=== PATIENT | female | born 1930 | race Caucasian/White ===

== ENCOUNTER 2016-08-07 17:56 | Observation (INO) | payer MEDICARE, OTHER ==
--- NOTE | ~2016-08-07 | HP ---
History And Physical [place] [id number] [facility] [place] [address] NAME: ZACHARIAH LLAMAS : [birth year] STATUS : ADM Go PAT#: [id number] AGE: 86 ADM/REG DATE : 08/07/16 MR#: [id number] REPORT SERV DATE: 08/08/16 DICTATED BY: JESSICA CURIEL DATE: 08/08/16 REPORT STATUS : Draft TRANSCRIBED BY: QUINTON DATE: 08/08/16 DATE OF ADMISSION: 08/07/2016 CHIEF COMPLAINT: Chest pain. HISTORY OF PRESENT ILLNESS: This is a very pleasant 86-year-old female with no prior history of coronary artery disease, who states onset of "deep pressure" to her mid sternum yesterday on the way home from [place] while she was driving herself home at 1230 hours. She describes it as 8/10 in severity with no specific radiation but associated with nausea. She called her family members when she got home and had tried antacids with little relief. It was associated with some burping as well, which did not specifically relieve the pain. She was brought to our emergency department with family members around 1 o'clock in the afternoon and waited in the waiting room for some time and the pain gradually eased. She did receive some nitroglycerin paste around 6:30 in the evening. Her blood pressure on admission was 219/85, but has been controlled through the night. She still complains of approximately 1/10 chest pain currently, but states no other increased episodes through the night. She denies any recent fever, cough, or chills. She does have a history reportedly of some COPD, but no smoking history, and was seen by wool puller in the past with home O2 use. She currently does get some dyspnea on exertion, but she manages without any oxygen. Denies any PND, orthopnea, or increased lower extremity edema. She does have some chronic left lower extremity edema since a total knee replacement in 2013. Denies any recent palpitations or presyncope. She leads a fairly active lifestyle, still lives independently and drives. PAST MEDICAL HISTORY: 1. Hypertension. 2. Hyperlipidemia. 3. Depression. 4. GERD. 5. Macular degeneration to the left, requiring injections. 6. Migraine headache. 7. COPD. PAST SURGICAL HISTORY: 1. Left total knee replacement in 2013. 2. Right wrist surgery. 3. Hysterectomy. 4. Hemorrhoid surgery. 5. Vein stripping. HOME MEDICATIONS: Artificial Tears t.i.d. p.r.n., aspirin 81 daily, Tenormin 25 at bedtime, hydrochlorothiazide 12.5 every morning, naproxen 440 mg daily p.r.n. pain, Prilosec 20 mg every morning, MiraLAX 17 g packet daily p.r.n. constipation, Zoloft 50 at bedtime, Restoril 15 mg p.r.n. insomnia, Zanaflex 4 mg daily p.r.n. muscle spasms, ophthalmic injection q.10 weeks to the left eye, and Icaps twice a day. ALLERGIES: STATINS CAUSE MUSCLE WEAKNESS. History And Physical [address] [address] NAME: ZACHARIAH LLAMAS : [birth year] STATUS : ADM Go PAT#: [id number] AGE: 86 ADM/REG DATE : 08/07/16 MR#: [id number] REPORT SERV DATE: 08/08/16 DICTATED BY: JESSICA CURIEL DATE: 08/08/16 REPORT STATUS : Draft TRANSCRIBED BY: QUINTON DATE: 08/08/16 SOCIAL HISTORY: The patient is a and lives by herself in [place], [place]. Her son is at bedside. She also has a daughter. She has never smoked. Denies alcohol use. FAMILY HISTORY: Father of an NH at age 67. Mother of complications from CHF at age 83. She has a daughter who had an NH at age 69. REVIEW OF SYSTEMS: Negative except as indicated above. PHYSICAL EXAMINATION: VITAL SIGNS: Blood pressure 126/68, heart rate 70, temperature 98.5, pulse oximetry 96% on room air. BMI 33.4. GENERAL: Well developed, well nourished, in no acute distress HEENT: Anicteric. Normal EOM. Head normocephalic. PERRLA, no xanthelasma. NECK: Supple. No JVD. Carotids normal without bruits. LUNGS: Coarse to the bilateral lower lobes. Normal respiratory effort. No wheezing. CARDIAC: S1, S2 regular rate and rhythm. No murmurs, rubs, or gallops. No chest wall tenderness. ABDOMEN: Normal bowel sounds. Soft and nontender to palpation. No masses or organomegaly. EXTREMITIES: 1+ edema to the left lower extremity. Normal distal pulses. No calf tenderness. SKIN: Warm and dry. Normal turgor. No pallor or cyanosis. MUSCULOSKELETAL: Moving all extremities x4. Normal muscle strength. NEURO/PSYCH: Alert and oriented with appropriate affect. LABORATORY DATA: White blood cell count 7.5, hemoglobin 12.0, hematocrit 36.0. D-dimer 1.69. Sodium 137, potassium 4.1, BUN 16, and creatinine 0.9. Troponin less than 0.02 x2. IMAGING: Chest x-ray shows small amount of bibasilar atelectasis and CTA of the chest with no evidence of pulmonary emboli. There are chronic ground-glass opacities in the lung post. This is consistent with underlying chronic interstitial lung disease/pulmonary fibrosis. Cardiomegaly with no acute CHF pattern. Mildly distended gallbladder without any evidence of gallstones or inflammatory changes. EKG interpreted by myself indicates sinus rhythm with LVH. ASSESSMENT AND PLAN: 1. Midsternal chest pain in this 86-year-old female with cardiovascular risk factors of hypertension, hyperlipidemia, and family history. She has been observed overnight in the chest Pain observation Unit and is negative for acute coronary syndrome. I have discussed with the patient given her age if she wants to proceed with further cardiac testing. Given her high functional status, we will proceed with a nuclear stress test today and discharge her home if it is low risk with no indication of ischemia. If any indication of ischemia, we will plan to discuss with her cardiac catheterization if warranted. The patient agrees to this plan. We will also arrange followup with her primary care physician upon discharge. 2. Hypertension, initially elevated, but has been controlled while she has been admitted. History And Physical [address] [place]. [address] NAME: ZACHARIAH LLAMAS BRIONES : [birth year] STATUS : ADM Go PAT#: [id number] AGE: 86 ADM/REG DATE : 08/07/16 MR#: [id number] REPORT SERV DATE: 08/08/16 DICTATED BY: JESSICA CURIEL DATE: 08/08/16 REPORT STATUS : Draft TRANSCRIBED BY: MODL DATE: 08/08/16 Continue home medications. 3. Mixed hyperlipidemia with statin intolerance. 4. Chronic obstructive pulmonary disease with some chronic interstitial changes on CTA of the chest. No evidence of pulmonary embolism. The patient is not significantly dyspneic, nor has she had any changes in her pulmonary symptoms. Follow up with her wool puller as needed. ROMMEL/MODL Jessica Curiel NP / [id number] CC: Lluvia Coffey, MSN, LODGE ATTENDANT-BC Cari Oleary M.D.
[2016-08-07 14:13] LABS: BASOPHILS 0.1 %; BASOPHILS ABSOLUTE 0.01 10/3/uL (0.0-0.16); EOSINOPHILS 1.7 %; EOSINOPHILS ABSOLUTE 0.13 10/3/uL (0.0-0.53); ER CBC TAT 0 Hrs 03 Mins; IMMATURE GRANULOCYTES 0.1 %; IMMATURE GRANULOCYTES ABSOLUTE 0.01 10/3/uL (0.0-0.11); LYMPHOCYTES 27.7 %; LYMPHOCYTES ABSOLUTE 2.07 10/3/uL (0.67-4.30); MANUAL DIFF NO %; MEAN CORPUS HGB CONC 33.3 g/dL (32.0-36.0); MEAN CORPUSCULAR HEMOGLOB 31.1 pg (26.0-34.0); MEAN CORPUSCULAR VOLUME 93.3 fL (80-100); MEAN PLATELET VOLUME 8.8 fL (9.2-13.0); MONOCYTES 7.1 %; MONOCYTES ABSOLUTE 0.53 10/3/uL (0.21-1.20); NEUTROPHILS 63.3 %; NEUTROPHILS ABSOLUTE 4.73 10/3/uL (2.02-8.40); PLATELET COUNT 261 10/3/uL (150-400); RBC DISTRIBUTION WIDTH 13.2 % (12.0-16.0); RED CELL COUNT 3.86 10/6/uL (4.0-5.6); WHITE BLOOD CELLS 7.5 10/3/uL (4.5-10.5)
[2016-08-07 14:21] LABS: INTERNATIONAL NORMAL RATI 1.1 UNITS (-); PARTIAL THROMBO TIME 38.3 SEC (22.5-37.2); PROTIME (NOT ORD) 13.9 SEC (12.0-14.5)
[2016-08-07 14:30] LABS: BUN (BLOOD UREA NITROGEN) 16 MG/DL (6-23); CALCIUM, SERUM 8.5 MG/DL (8.5-10.4); CHEST PAIN PROFILE TAT 0 Hrs 20 Mins; CHLORIDE, SERUM 99 MMOL/L (96-112); CO2 (CARBON DIOXIDE) 32 MMOL/L (24-34); CREATININE 0.92 MG/DL (0.55-1.02); GFR AFRICAN AMERICAN 64 ML/MIN (>=60); GFR NON AFRICAN AMERICAN 56 ML/MIN (>=60); GLUCOSE, SERUM 108 MG/DL (60-99); POTASSIUM, SERUM 4.1 MMOL/L (3.5-5.3); SODIUM, SERUM 137 MMOL/L (135-148); TROPONIN I <0.02 NG/ML (<0.05)
[2016-08-07 16:31] LABS: D-DIMER QUANTITATIVE 1.69 ug/mLFEU (< 0.50)
[~2016-08-07 17:56] MED LIST: ALEVE220 MG PO; ASAB PO; ATEN25 PO; FISH-EPA1000 MG PO; HYDROCHLOROT12.5 MG PO; ICAPS AREDS SO1 EACH PO; MIRALAX POWDER1 PKT PO; MIRALAXPKT PO; MULTIVITAMI1 PO; NIACIN 500 PO; OPTHALMIC OPH; PRILO PO; REFRESH OPH; REST15 PO; ZANAFLEX 4 MG TA4 MG PO; ZOL50 PO
== END 2016-08-08 14:55 | disposition home or self-care (01) ==
LOC: ER 17:56 → CDU1 19:15 → CDU2 19:53
PROVIDERS: Emergency Medicine
DX: R07.9 Chest pain, unspecified (principal); I10 Essential (primary) hypertension; F32.9 Major depressive disorder, single episode, unspecified; K21.9 Gastro-esophageal reflux disease without esophagitis; G43.909 Migraine, unspecified, not intractable, without status migrainosus; J44.9 Chronic obstructive pulmonary disease, unspecified; E78.2 Mixed hyperlipidemia; E78.00 Pure hypercholesterolemia, unspecified; M19.90 Unspecified osteoarthritis, unspecified site; Z96.652 Presence of left artificial knee joint; Z90.710 Acquired absence of both cervix and uterus; Z98.890 Other specified postprocedural states; Z79.82 Long term (current) use of aspirin; Z79.899 Other long term (current) drug therapy; Z82.49 Family history of ischemic heart disease and other diseases of the circulatory system
CPT/HCPCS: 71020; 71275; 78452; 80048; 83735; 84484; 85025; 85379; 85610; 85730; 93005; 93017; 99285; A9270-GY; A9502; G0378; J0153; Q9967